=== PATIENT | male | born 1960 | race Caucasian/White ===

== ENCOUNTER 2021-04-19 08:26 | Day surgery (SDC) | payer BC ==
[~2021-04-19 08:26] MED LIST: Lactated Ringers 1,000 ML IV SCH
[2021-04-19] MEDS ORDERED: Propofol 200 MG/20 ML SDV ONE (09:11)
[2021-04-19] MEDS ORDERED: fentaNYL 100 MCG/2 ML SDV ONE (09:15)
[2021-04-19] MEDS ORDERED: Midazolam 1 MG/ML 2 ML SDV ONE (09:15)
[2021-04-19 10:34] VITALS: BP 172/100; PULSE 73
--- NOTE | 2021-04-19 13:48 | OR ---
PREOPERATIVE DIAGNOSIS: Screening colonoscopy. POSTOPERATIVE DIAGNOSIS: Colon polyps. PROCEDURE PERFORMED: Total flexible colonoscopy with biopsies. ANESTHESIA: MAC anesthesia. COMPLICATIONS: None. BLOOD LOSS: Minimal. FINDINGS: Descending colon polyps x3, 2 mm, cold forceps. START TIME: 0940. CECUM TIME: 0943. STOP TIME: 1001. BOWEL PREP: [place] class 3. INDICATION FOR PROCEDURE: Mr. Hernandez is a 61-year-old male who is here for screening colonoscopy. His last scope was 11 years ago. He is unsure if he had any polyps. He denies any bloody or dark black stools, and has no family history of colon cancer. DETAILS OF PROCEDURE: Informed consent was obtained. The patient was brought to the procedure room and placed in left lateral decubitus position. MAC anesthesia was induced by Anesthesia colleagues. The colonoscope was introduced into the rectum and advanced all the way to the cecum. The appendiceal orifice and ileocecal valve were photographed. The colonoscope was then slowly withdrawn. No pathology was identified except for what is mentioned in the above findings section. Retroflexed view was obtained. The colonoscope was removed. The patient tolerated the procedure well, was awoken from anesthesia by Anesthesia colleagues without incident. PATHOLOGY: RECOMMENDATIONS: RKM: 04/19/2021 10:06:04 MODL: 04/19/2021 12:31:20 /[id number]
== END 2021-04-19 11:15 | disposition home or self-care (01) ==
LOC: VM.SDS 08:26
PROVIDERS: ATTEND Student in an Organized Health Care Education/Training Program
DX: Z12.11 Encounter for screening for malignant neoplasm of colon (principal); K63.5 Polyp of colon; M06.9 Rheumatoid arthritis, unspecified; K21.9 Gastro-esophageal reflux disease without esophagitis; E78.00 Pure hypercholesterolemia, unspecified; I10 Essential (primary) hypertension; E78.5 Hyperlipidemia, unspecified; R73.9 Hyperglycemia, unspecified; Z79.899 Other long term (current) drug therapy; Z88.8 Allergy status to other drugs, medicaments and biological substances; Z98.890 Other specified postprocedural states; Z87.891 Personal history of nicotine dependence; Z90.49 Acquired absence of other specified parts of digestive tract
CPT/HCPCS: 00812; 45380; J2250; J2704; J3010; J7120